=== PATIENT | male | born 1990 | race African-American/Black ===

== ENCOUNTER 2025-01-01 05:44 | Emergency (ER) | payer SELFPAY ==
[~2025-01-01] VITALS: Ht 172.7 cm; Wt 75.0 kg
[2025-01-01 05:54] VITALS: O2SAT 99
[2025-01-01] MEDS ORDERED: POLY17PO3 PO (06:23)
[2025-01-01] MEDS ORDERED: HYDR26CR2 TP (06:23)
[2025-01-01] MEDS: ACETAMINOPHEN 325MG TABLET PO ONE (06:31)
[2025-01-01 06:38] VITALS: BP 165/111; PULSE 68; RESP 18; TEMP 36.6; O2SAT 100
== END 2025-01-01 06:43 | disposition home or self-care (01) ==
LOC: ER 05:54
DX: K64.9 Unspecified hemorrhoids (principal)
CPT/HCPCS: 99282